=== PATIENT | female | born 1955 | race Caucasian/White ===

== ENCOUNTER 2017-01-31 05:08 | Inpatient (IN) ==
[2017-01-23 14:16] LABS: Appearance,Urine CLEAR; Bilirubin,Urine NEG (NEG); Color,Urine YELLOW; Glucose,Urine (UA) NEGATIVE (NEG); Leukocyte Esterase,Urine NEG /uL (NEG); Nitrate,Urine NEG (NEG); Protein,Urine NEG (NEG); Specific Gravity,Urine 1.019 (1.000-1.035); Urine Blood NEG mg/dL (<0.03); Urobilinogen,Urine NEG (NEG)
[2017-01-23 14:41] LABS: Basophils # (Auto) 0 K/mcL (0.0-0.3); Basophils % (Auto) 0.5 % (0.0-2.0); Eosinophils # (Auto) 0.1 K/mcL (0.0-0.7); Eosinophils % (Auto) 1.1 % (0.0-7.0); Lymphocytes # (Auto) 2.7 K/mcL (1.5-4.8); Mean Cell Volume 100.7 fL (80.0-100.0); Mean Corpuscular HGB Conc 34.2 g/dL (31.0-36.0); Mean Corpuscular Hemoglobin 34.4 pg (26.0-34.0); Monocytes # (Auto) 0.6 K/mcL (0.1-0.9); Monocytes % (Auto) 7.4 % (1.0-12.0); Platelet Count 289 K/mcL (140-440); RBC 4.22 M/mcL (4.00-5.20); Red Cell Distribution Width 13.7 % (11.5-14.5)
[2017-01-23 14:50] LABS: Blood Urea Nitrogen 19 mg/dl (6-20)
[~2017-01-31 05:08] MED LIST: CELECOXIB 200 MG CAPSULE PO SCH; PREGABALIN 75 MG CAPSULE PO SCH; ceFAZolin 1 GM VIAL IV SCH; oxyCODONE 10 MG TAB.ER.12H PO SCH
[2017-01-31] MEDS ORDERED: KETOROLAC 30 MG, ROPIVACAINE HCL/PF 49.5 ML, EPINEPHrine 0.5 MG, 0.9 % SODIUM CHLORIDE ... IJ SCH (06:30)
[2017-01-31] MEDS ORDERED: SCOPOLAMINE 1 PATCH PATCH TOPICAL ONE (07:19)
[2017-01-31] MEDS ORDERED: MIDAZOLAM 2 MG/2 ML VIAL IV ONE (07:45)
[2017-01-31] MEDS ORDERED: LIDOCAINE HCL/PF 100 MG/5 ML SYRINGE IV ONE (07:45)
[2017-01-31] MEDS ORDERED: ROPIVACAINE HCL/PF 20 ML VIAL IJ ONE (07:45)
[2017-01-31] MEDS ORDERED: DEXAMETHASONE 10 MG/ML VIAL IV ONE (07:45)
[2017-01-31] MEDS ORDERED: PROPOFOL 200 MG/20 ML VIAL IV ONE (07:45)
[2017-01-31] MEDS ORDERED: TRANEXAMIC ACID 1,000 MG/10 ML VIAL IV ONE (07:45)
[2017-01-31] MEDS ORDERED: GLYCOPYRROLATE 0.2 MG/ML VIAL IV ONE (07:45)
[2017-01-31] MEDS ORDERED: ONDANSETRON 4 MG/2 ML VIAL IV ONE (07:45)
[2017-01-31] MEDS ORDERED: FLUMAZENIL 0.1 MG/ML ML IV PRN (08:50)
[2017-01-31] MEDS ORDERED: diphenhydrAMINE 50 MG/ML VIAL IV PRN (08:50)
[2017-01-31] MEDS ORDERED: ePHEDrine 50 MG/ML AMPUL IV PRN (08:50)
[2017-01-31] MEDS ORDERED: LACTATED RINGERS 250 ML IV PRN (08:50)
[2017-01-31] MEDS ORDERED: ONDANSETRON 4 MG/2 ML VIAL IV PRN ×2 (08:50→09:26)
[2017-01-31] MEDS ORDERED: MEPERIDINE 25 MG/ML SYRINGE IV PRN (08:50)
[2017-01-31] MEDS ORDERED: HYDROmorphone 2 MG/ML SYRINGE IV PRN ×2 (08:50→09:26)
[2017-01-31] MEDS ORDERED: MEPERIDINE 50 MG/ML SYRINGE IM PRN (08:50)
[2017-01-31] MEDS ORDERED: fentaNYL 100 MCG/2 ML VIAL IV PRN (08:50)
[2017-01-31] MEDS ORDERED: BENZOCAINE/MENTHOL 1 LOZENGE PO PRN ×2 (08:50→09:26)
[2017-01-31] MEDS ORDERED: IPRATROPIUM/ALBUTEROL 3 ML AMPUL.NEB NEB PRN (08:50)
[2017-01-31] MEDS ORDERED: METHOCARBAMOL 1,000 MG/10 ML VIAL IV PRN (08:50)
[2017-01-31] MEDS ORDERED: ACETAMINOPHEN 1,000 MG/100 ML BOTTLE IV SCH (09:00)
[2017-01-31] MEDS ORDERED: LACTATED RINGERS 1,000 ML IV SCH (09:00)
[2017-01-31] MEDS ORDERED: MAGNESIUM HYDROXIDE 30 ML ORAL.SUSP PO PRN (09:26)
[2017-01-31] MEDS ORDERED: FLEETS ADULT ENEMA PR PRN (09:26)
[2017-01-31] MEDS ORDERED: TRANEXAMIC ACID 1,000 MG/10 ML VIAL IV SCH (09:26)
[2017-01-31] MEDS ORDERED: POLYETHYLENE GLYCOL 3350 17 GM PACKET PO PRN (09:26)
[2017-01-31] MEDS ORDERED: BISACODYL 10 MG SUPP.RECT PR PRN (09:26)
--- NOTE | 2017-01-31 09:26 | Brief Operative Note ---
Date of procedure: 01/31/17 Pre-op diagnosis: Right knee severe OA Post-op diagnosis: same Procedure: Right robotic assisted total knee arthroplasty Grafts/Implants: Yes (James 2 CR femur, 2 tibia, 9mm insert, 33 patella) Anesthesia: spinal, GLMA Findings: severe DJD Complications: none Surgeon: Jose Alfredo Huggins Manufacturing Process Engineer: Lorenzo Murray Estimated blood loss (cc): 20 Specimens Removed/Pathology: none sent Condition: stable Disposition: PACU
[2017-01-31] MEDS ORDERED: LABETALOL 5 MG/ML ML IV PRN (09:59)
[2017-01-31] MEDS ORDERED: hydrALAZINE 20 MG/ML VIAL IV PRN (10:01)
[2017-01-31] MEDS: 0.9 % SODIUM CHLORIDE 1,000 ML IV SCH ×2 (10:07→19:41)
--- NOTE | 2017-01-31 10:29 | XRay Report ---
CLINICAL INFORMATION: Postop total knee prostheses COMPARISON: Preoperative film from 12/30/2009 FINDINGS: Total knee prostheses is anatomically aligned. No osseous abnormality. Periarticular gas and soft tissue seen as expected IMPRESSION: Negative Interpreted and Authenticated by: Bari Griffith 01/31/17
--- NOTE | 2017-01-31 10:45 | Operative Note ---
DATE OF OPERATION: 01/31/2017 PREOPERATIVE DIAGNOSIS: Right knee severe kajz-da-xhrb osteoarthritis. POSTOPERATIVE DIAGNOSIS: Right knee severe ccfp-jf-lghy osteoarthritis. PROCEDURE PERFORMED: Right robotic-assisted total knee arthroplasty. SURGEON: Jose Alfredo Huggins M.D. PERSONAL FITNESS TRAINER: Bill Murray PA-C. ANESTHESIA: Spinal plus general. DRAINS: None. SPECIMENS: Bone cuts, which were discarded. BLOOD LOSS: Minimal. POSTOPERATIVE CONDITION: Stable. INDICATIONS FOR SURGERY: This is a 61-year-old female who has had longstanding worsening right knee pain. Radiographs showed [id number] patellofemoral osteoarthritis. She had had a previous left total knee arthroplasty with good result. FINDINGS AT SURGERY: She did have [id number] patellofemoral osteoarthritis with patellar maltracking. Post implantation showed good patellar tracking with joint stability and alignment. PROCEDURE IN DETAIL: The patient had been seen preoperatively. Informed consent had been obtained after discussion of risks and benefits of surgery. Risks including, but not limited to, bleeding, possibly requiring transfusion; infection, possibly requiring implant removal and prolonged IV antibiotics; injury to nerves, blood vessels, and other surrounding structures; anesthetic risks; incomplete or no resolution of symptoms; stiffness; pain; instability; swelling; DVT and pulmonary embolus risks; and the possibility of needing further revision surgery. She understood these risks and wished to proceed. Correct operative site was marked and then patient received spinal anesthesia. She was taken to the operating room and LMA general was given. The right lower extremity was then carefully prepped and draped in normal sterile fashion, and a time-out was performed verifying patient name, operative site, and plan. Esmarch was used to exsanguinate the extremity and tourniquet was inflated. A midline incision was made with a scalpel through skin and subcutaneous tissue and Irrisept was irrigated. A medial parapatellar arthrotomy was made and then a subperiosteal exposure was done of the anterior medial tibia and distal anterior cortex of the femur. The retropatellar fat pad was excised as well as anterior horns of the menisci. Irrisept was irrigated and then stab incisions. Two were made over the femur and two over the tibia. Two bicortical pins were placed in each, and the arrays were connected. Femoral and tibial check points were placed. We then took our hip center of rotation and then green probe was used to check the medial and lateral malleoli, as well as double-check the femoral and tibial check points. Blue probe was then used to do our mapping of the femur and tibia. We then removed osteophytes with a rongeur and then checked our flexion-extension gaps with the spoons. We ended up adjusting to 2 degrees of varus on the tibia and 1 on the femur. We had 17 mm gaps medially in flexion and extension and 17 lateral in flexion and 18 in extension. We did not feel further varus in the tibia was warranted. We then locked this into the robot and did our double-checks and then used the robotic assistance to do our femoral and tibial bone cuts. The tibia was then marked for rotation with Bovie using the green probe and then posterior osteophytes were removed with a curved osteotome. The tibia was prepared. Boss reamer and keel punch and then a keeled tibial trial placed. The femoral trial was placed and pinned and peg holes drilled. The 9 insert trial was snapped into place, and the knee was then taken into extension. The patella was measured and freehand resected. We removed 10 mm of bone. We sized this to a 33, which was medialized maximally. Holes were drilled and then a patellar trial was placed. We then took the knee through range of motion. Patella tracked very well. We were within 1 degree of complete extension. We then removed trial implants while definitive implants were opened. We filled the joint with Irrisept. After waiting a minute, we pulse lavaged with saline. Antibiotic cement was mixed and then we used CO2 gun to clean the cancellous surfaces. We then cemented the tibia, followed by the femur. Excess cement was removed and a 9 insert trial was placed. The knee was taken into extension. Patellar button was cemented. We then filled the joint with Irrisept. While cement was hardening, we used a pain cocktail and injected the pericapsular and subcutaneous tissues. After a minute, we pulse lavaged copiously with saline and then repeated this again with more Irrisept, waiting a minute, and then pulse lavaged again. Once cement had fully hardened, we flexed the knee up. I did a final inspection and removal of any excess cement. The tibial insert trial was removed. We injected pain cocktail in the posterior capsule and a 9 insert was opened. The tibial tray was filled with Irrisept and then the insert was impacted. We went ahead and waited a minute and then pulse lavaged with saline. The knee was taken to about 45 degrees of flexion. Checkpoints were removed. Interrupted #2 FiberWire was used around the superior medial patella, #1 Vicryl interrupted [id number] around the inferior medial patella, running #1 Vicryl for patellar tendon and quad tendon, 2-0 Monocryl for subcutaneous, and then bibiana for skin. Pins were removed and stapled. Xeroform and sterile dressing were applied. Tourniquet was released. The patient was awakened, extubated, and transferred to recovery in stable condition. BJB:lor Job ID: [id number] Doc ID: [id number] Jose Alfredo Huggins MD
[2017-01-31] MEDS ORDERED: KETOROLAC 30 MG/ML VIAL ONE (13:32)
--- NOTE | 2017-01-31 13:33 | Discharge Summary ---
Providers - Providers Patient information: Note initiated : 01/31/17 at 1:31 pm Service Date, if different from initiated Date: [] Patient: Esme Barth 61 y/o F admitted on 01/31/17 for Right Total Knee Arthroplasty - Yvan. Chief Complaint: [] Discharge date: 02/01/17 Hospitalization Hospital course: Pt was admitted for a R Total knee arthroplasty. She underwent the procedure on the day of admission. She was then transfered to the floor for IV pain meds, IV abx, and PT. She spent one night on the floor prior to discharge. SHe was given appropriate pain medication and Aspirin for DVT prophylaxis. She will f/u at [facility] in 10-14 days. Discharge diagnosis: R knee osteoarthrosis Exam - Exam Clean and dry: Yes Weight bearing status: as tolerated Ortho Discharge - TKA - Patient Instructions Diet: Regular Diet Activity: activity as tolerated Total Knee Protocol: For Total Knee: Start ROM NIKHIL with stationary bike or rocking chair. Work on gaining full extension of knee. Posterior dislocation precautions provided. Hip abductor strengthening and gait training instructions provided. Apply Cryocuff as instructed. Dressing Care: May shower in 2 days - Follow Up Plan Follow Up Appointments: Lorenzo Murray PA-C [Physician Mortgage Loan Coordinator] - 02/15/17 10:40 am Disposition: Home, Self-Care Prognosis: Good Rehab Potential: Good Overall status at discharge: patient is progressing back to baseline - Orders For Discharge Prescriptions: Aspirin [Ecotrin] 325 mg PO BID #30 tab.ec oxyCODONE/APAP [Percocet 5-325 mg] 1 - 2 tab PO Q4HP PRN #90 tab PRN Reason: Pain Additional Discharge Orders: Physical Therapy at Discharge - TKA Location: Determined By Patient Walker Location: Determined By Patient Pending Studies Resuscitation Status Full Code Diet Regular Diet Start SunJan 31 Lunch Cefazolin Sodium (Ancef) 1 gm IV PREOP RON Stop: 01/31/17 17:00 Last Admin: 01/31/17 07:29 Dose: 1 gm Celecoxib (Celebrex) 200 mg PO PREOP RON Stop: 01/31/17 17:00 Last Admin: 01/31/17 05:46 Dose: 200 mg Ketorolac Tromethamine 30 mg/Ropivacaine 49.5 ml/Epinephrine HCl 0.5 mg/ Sodium Chloride 9 ml 0 mg IJ ONCE RON Stop: 01/31/17 17:00 Last Admin: 01/31/17 08:59 Dose: 110 ml Sodium Chloride (Sodium Chloride 0.9%) 1,000 mls @ 100 mls/hr IV .Q10H RON Last Admin: 01/31/17 10:07 Dose: 100 mls/hr Oxycodone HCl (Oxycontin) 10 mg PO PREOP RON Stop: 01/31/17 17:00 Last Admin: 01/31/17 05:46 Dose: 10 mg Pregabalin (Lyrica) 75 mg PO PREOP RON Stop: 01/31/17 17:00 Last Admin: 01/31/17 05:46 Dose: 75 mg Shift Summary 01/31/17 11:10 (created 01/31/17 11:38) Shift Summary by Alexia Harding Pt returned from recovery following right robotic TKA. This RN received bedside report from Sara powertrain control systems engineer. VS are stable Pt did complain of chest tightness in PACU, with SBP in the 190's . Hydralazine given in PACU. A new EKG was done and pt was found to have no changes in her EKG compared to pre-op. She is in normal sinus rhythm. Her BP upon coming to her inpatient room was 155/90. No c/o pain. Complains of being cold, gave warm blankets. Denies nausea. Initialized on 01/31/17 11:38 - END OF NOTE
[2017-01-31] MEDS: KETOROLAC 30 MG/ML VIAL IV SCH ×3 (13:35→23:47)
[2017-01-31] MEDS: 0.9 % SODIUM CHLORIDE 10 ML SYRINGE IV SCH ×2 (14:52→20:23)
[2017-01-31] MEDS: ceFAZolin 1 GM VIAL IV SCH ×2 (17:44→23:46)
[2017-01-31] MEDS: ASPIRIN 325 MG ENTERIC COATED TABLET PO SCH (20:23)
[2017-01-31] MEDS: DOCUSATE SODIUM 100 MG CAPSULE PO SCH (20:23)
[2017-01-31] MEDS: oxyCODONE/APAP 5/325MG TABLET PO PRN (20:38)
[2017-01-31] MEDS ORDERED: SENNOSIDES 1 TABLET PO SCH (21:00)
[2017-02-01] MEDS: oxyCODONE/APAP 5/325MG TABLET PO PRN ×4 (00:20→12:23)
[2017-02-01] MEDS: 0.9 % SODIUM CHLORIDE 1,000 ML IV SCH (04:24)
[2017-02-01] MEDS: KETOROLAC 30 MG/ML VIAL IV SCH ×2 (05:33→11:50)
[2017-02-01] MEDS: 0.9 % SODIUM CHLORIDE 10 ML SYRINGE IV SCH (05:33)
--- NOTE | 2017-02-01 07:35 | Orthopedic Progress Note ---
Orthopedics - Auxillary Note - Subjective Patient Information: Note initiated : 02/01/17 at 7:34 am Service Date, if different from initiated Date: [] Patient: Esme Barth 61 y/o F admitted on 01/31/17 for Right Total Knee Arthroplasty - Yvan. Chief Complaint: No c/o. bandages c/d/i nvi-distal Vital Signs Temp Pulse Pulse Resp BP Pulse Ox 02/01/17 07:02 97.4 F 14 127/81 96 02/01/17 03:44 98.3 F 65 14 139/87 98 01/31/17 23:43 98.2 F 60 20 171/87 97 01/31/17 20:15 97.8 F 57 L 14 185/95 100 01/31/17 16:00 98.6 F 18 142/89 97 01/31/17 14:00 66 148/87 98 01/31/17 13:00 98.2 F 134/85 96 01/31/17 12:30 132/85 97 01/31/17 12:00 149/95 100 01/31/17 11:45 159/87 95 01/31/17 11:30 163/90 97 01/31/17 11:15 97.6 F 155/90 98 01/31/17 10:50 60 13 167/86 100 01/31/17 10:40 66 15 164/106 100 01/31/17 10:35 65 17 190/93 100 01/31/17 10:30 65 17 186/91 100 01/31/17 10:25 64 15 177/93 100 01/31/17 10:20 68 15 194/118 100 01/31/17 10:15 65 12 198/89 100 01/31/17 10:10 62 12 199/95 100 01/31/17 10:05 70 12 185/98 100 01/31/17 10:00 66 74 21 181/89 100 01/31/17 07:45 97.3 F 16 171/98 95 01/31/17 07:43 97.3 F 16 171/98 95 Intake and Output 01/31/17 02/01/17 02/01/17 21:59 05:59 13:59 Intake Total 2517 / 2517 1027 / 1027 Output Total 1262 / 1262 1525 / 1525 Balance 1255 / 1255 -498 / -498 Intake: IV 957 / 957 487 / 487 Sodium Chloride 0.9% 1,000 ml @ 957 / 957 487 / 487 100 mls/hr IV .Q10H RON Rx#: [id number] Oral 1560 / 1560 540 / 540 Output: Urine Catheter Amount 860 / 860 Void Amount 400 / 400 1525 / 1525 # of times incontinent of urine 2 / 2 Other: Meal Dinner Jello, 1 pkg crackers Percent of Meal Consumed 100% 100% Feeding Ability Independent # Voids 1 1 Weight 157 lb 8 oz Laboratory Results - last 24 hr 02/01/17 04:10 Hgb 10.5 L Hct 30.8 L s/p R TKA-stable mobilize with PT discharge today
[2017-02-01] MEDS: ASPIRIN 325 MG ENTERIC COATED TABLET PO SCH (08:17)
[2017-02-01] MEDS: DOCUSATE SODIUM 100 MG CAPSULE PO SCH (08:17)
[2017-02-01] MEDS ORDERED: LISINOPRIL 5 MG TABLET PO SCH (09:00)
[2017-02-01] MEDS ORDERED: MULTIVIT,THER IRON,CA,FA & MIN 1 TABLET PO SCH (09:00)
[2017-02-01] MEDS ORDERED: LACTOBACILLUS 1 CAPSULE PO SCH (09:00)
== END 2017-02-01 12:40 | disposition home or self-care (01) | DRG 470 ==
LOC: MEDSUR 05:08
PROVIDERS: ADMIT Orthopaedic Surgery; ATTEND Orthopaedic Surgery